=== PATIENT | female | born 1970 | race Native Hawaiian/Other Pacific Islander ===

== ENCOUNTER 2016-12-21 12:52 | Outpatient (CLI) | payer OTHER ==
[~2016-12-21 12:52] MED LIST: ALPR0.2566 PO; BENICAR HCT1 TA2 PO; HYDR25TA60 PO; LEVO0.1T6 PO; OMEP40CA PO; POLY3350; PRISTIQ50 MG OR; WELLBUTRIN150 MG PO
[2016-12-21 13:30] LABS: PLATELET COUNT 347 K/uL (152-353)
[2016-12-21 14:29] LABS: POTASSIUM 3.8 mmol/L (3.6-5.2); SODIUM 134 mmol/L (136-145)
== END 2016-12-21 13:00 | disposition home or self-care (01) ==
LOC: LAB 12:52
PROVIDERS: Nurse Practitioner Family
DX: F32.89 Other specified depressive episodes (principal); F41.8 Other specified anxiety disorders; R63.5 Abnormal weight gain; R53.83 Other fatigue; R53.81 Other malaise; E78.00 Pure hypercholesterolemia, unspecified; R79.89 Other specified abnormal findings of blood chemistry
CPT/HCPCS: 80053; 80061; 82306; 82607; 82672; 83036; 84144; 84402; 84436; 84443; 85027

== ENCOUNTER 2017-10-07 12:30 | Outpatient (CLI) | payer OTHER ==
[2017-10-07 12:53] LABS: PLATELET COUNT 369 K/uL (152-353)
[2017-10-07 12:56] LABS: POTASSIUM 3.8 mmol/L (3.6-5.2); SODIUM 134 mmol/L (136-145)
== END 2017-10-07 22:01 | disposition home or self-care (01) ==
LOC: LABW 12:30
PROVIDERS: Anesthesiology
DX: Z01.818 Encounter for other preprocedural examination (principal); I10 Essential (primary) hypertension
CPT/HCPCS: 36415; 80048; 81025; 85027

== ENCOUNTER 2018-11-17 13:42 | Outpatient (CLI) | payer OTHER ==
[2018-11-17 14:15] LABS: POTASSIUM 3.4 mmol/L (3.6-5.2)
== END 2018-11-17 20:06 | disposition home or self-care (01) ==
LOC: LABW 13:42
PROVIDERS: Nurse Practitioner Family
DX: M79.10 Myalgia, unspecified site (principal)
CPT/HCPCS: 36415; 80053

== ENCOUNTER 2018-12-26 10:54 | Outpatient (CLI) | payer OTHER | END 2018-12-26 20:09 | disposition home or self-care (01) | LOC: LABW 10:54 | DX: Z01.818 Encounter for other preprocedural examination (principal) | CPT/HCPCS: 36415; 84702; 93005 ==

== ENCOUNTER 2019-02-24 09:36 | Outpatient (CLI) | payer OTHER | END 2019-02-24 19:16 | disposition home or self-care (01) | LOC: LABW 09:36 | PROVIDERS: Nurse Practitioner | DX: E03.8 Other specified hypothyroidism (principal); E78.49 Other hyperlipidemia | CPT/HCPCS: 36415; 80061; 84436; 84443 ==

== ENCOUNTER 2019-07-17 12:42 | Outpatient (CLI) | payer OTHER | END 2019-07-17 21:59 | disposition home or self-care (01) | LOC: MAMMO 12:42 | DX: Z12.31 Encounter for screening mammogram for malignant neoplasm of breast (principal) ==

== ENCOUNTER 2019-08-27 07:42 | Outpatient (CLI) | payer OTHER | END 2019-08-27 19:44 | disposition home or self-care (01) | LOC: LABW 07:42 | DX: E03.8 Other specified hypothyroidism (principal) | CPT/HCPCS: 36415; 84439; 84443 ==

== ENCOUNTER 2019-10-01 09:01 | Outpatient (CLI) | payer OTHER | END 2019-10-01 22:27 | disposition home or self-care (01) | LOC: US 09:01 | DX: R10.11 Right upper quadrant pain (principal); R11.0 Nausea; K21.9 Gastro-esophageal reflux disease without esophagitis | CPT/HCPCS: 87338 ==

== ENCOUNTER 2020-01-19 10:59 | Outpatient (CLI) | payer OTHER | END 2020-01-19 19:25 | disposition home or self-care (01) | LOC: LABW 10:59 | DX: E03.8 Other specified hypothyroidism (principal) | CPT/HCPCS: 36415; 84439; 84443 ==

== ENCOUNTER 2020-05-06 10:26 | Outpatient (CLI) | payer OTHER | END 2020-05-06 23:01 | disposition home or self-care (01) | LOC: RAD 10:26 | DX: R05 Cough (principal) ==

== ENCOUNTER 2020-07-08 11:26 | Outpatient (CLI) | payer OTHER | END 2020-07-08 22:25 | disposition home or self-care (01) | LOC: US 11:26 | DX: R10.32 Left lower quadrant pain (principal) ==

== ENCOUNTER 2020-07-14 08:27 | Outpatient (CLI) | payer OTHER | END 2020-07-14 19:01 | disposition home or self-care (01) | LOC: CT 08:27 | DX: K59.09 Other constipation (principal); R10.32 Left lower quadrant pain | CPT/HCPCS: 36415; 82565; 84520; Q9963 ==

== ENCOUNTER 2020-07-21 12:47 | Outpatient (CLI) | payer OTHER ==
[2020-07-21 13:09] LABS: PLATELET COUNT 353 K/uL (152-353)
== END 2020-07-21 23:17 | disposition home or self-care (01) ==
LOC: LABW 12:47
PROVIDERS: Registered Nurse
DX: R53.83 Other fatigue (principal); Z79.899 Other long term (current) drug therapy; R63.5 Abnormal weight gain; R10.84 Generalized abdominal pain
CPT/HCPCS: 36415; 80053; 82306; 82533; 82607; 82627; 82670; 82746; 84144; 84402; 84403; 84439; 84443; 84481; 85027; 86677

== ENCOUNTER 2020-08-24 12:44 | Outpatient (CLI) | payer OTHER | END 2020-08-24 19:59 | disposition home or self-care (01) | LOC: MAMMO 12:44 | PROVIDERS: ATTEND Obstetrics & Gynecology | DX: Z12.31 Encounter for screening mammogram for malignant neoplasm of breast (principal) ==

== ENCOUNTER 2020-09-21 09:21 | Day surgery (SDC) | payer OTHER ==
[2020-09-19 09:24] LABS: PLATELET COUNT 324 K/uL (152-353)
[2020-09-19 09:32] LABS: POTASSIUM 3.7 mmol/L (3.6-5.2)
== END 2020-09-21 11:45 | disposition home or self-care (01) ==
LOC: OR 09:21
PROVIDERS: ATTEND Internal Medicine Gastroenterology
PROC: 0DJD8ZZ Inspection of Lower Intestinal Tract, Via Natural or Artificial Opening Endoscopic (ICD-10-PCS; principal; 2020-09-21)
DX: K64.8 Other hemorrhoids (principal); R10.30 Lower abdominal pain, unspecified; K59.09 Other constipation
CPT/HCPCS: 80053; 85027; J2704; J7120

== ENCOUNTER 2021-04-10 08:11 | Outpatient (CLI) | payer OTHER | END 2021-04-10 19:19 | disposition home or self-care (01) | LOC: LABW 08:11 | PROVIDERS: ATTEND Nurse Practitioner | DX: R14.0 Abdominal distension (gaseous) (principal); R00.2 Palpitations | CPT/HCPCS: 87338 ==

== ENCOUNTER 2021-04-18 07:53 | Outpatient (CLI) | payer OTHER | END 2021-04-18 20:31 | disposition home or self-care (01) | LOC: NM 07:53 | PROVIDERS: ATTEND Nurse Practitioner | DX: R14.0 Abdominal distension (gaseous) (principal) | CPT/HCPCS: A9537 ==

== ENCOUNTER 2021-05-04 10:25 | Outpatient (CLI) | payer OTHER | END 2021-05-04 22:36 | disposition home or self-care (01) | LOC: RESP 10:25 | PROVIDERS: ATTEND Nurse Practitioner | DX: R00.2 Palpitations (principal) ==

== ENCOUNTER 2021-08-09 07:41 | Outpatient (CLI) | payer OTHER ==
[2021-08-09 08:30] LABS: PLATELET COUNT 369 K/uL (152-353)
== END 2021-08-09 20:28 | disposition home or self-care (01) ==
LOC: LABW 07:41
PROVIDERS: ATTEND Nurse Practitioner Family
DX: N95.1 Menopausal and female climacteric states (principal); E03.8 Other specified hypothyroidism; Z00.00 Encounter for general adult medical examination without abnormal findings; R00.2 Palpitations
CPT/HCPCS: 36415; 82670; 83001; 83002; 83036; 84144; 84436; 84439; 84443; 84479; 85027

== ENCOUNTER 2021-08-31 12:38 | Outpatient (CLI) | payer OTHER | END 2021-08-31 18:54 | disposition home or self-care (01) | LOC: MAMMO 12:38 | PROVIDERS: ATTEND Obstetrics & Gynecology | DX: Z12.31 Encounter for screening mammogram for malignant neoplasm of breast (principal) ==

== ENCOUNTER 2022-06-19 07:45 | Outpatient (CLI) | payer OTHER ==
[2022-06-19 08:08] LABS: PLATELET COUNT 313 K/uL (152-353)
[2022-06-19 08:18] LABS: POTASSIUM 3.4 mmol/L (3.6-5.2)
== END 2022-06-19 20:54 | disposition home or self-care (01) ==
LOC: LABW 07:45
PROVIDERS: ATTEND Nurse Practitioner Family
DX: I10 Essential (primary) hypertension (principal); N95.1 Menopausal and female climacteric states; E03.8 Other specified hypothyroidism; R00.2 Palpitations; R68.82 Decreased libido
CPT/HCPCS: 36415; 80053; 80061; 82670; 84144; 84403; 84439; 84443; 84479; 84480; 85027

== ENCOUNTER 2022-09-25 12:07 | Outpatient (CLI) | payer OTHER | END 2022-09-25 19:01 | disposition home or self-care (01) | LOC: MAMMO 12:07 | PROVIDERS: ATTEND Obstetrics & Gynecology | DX: Z13.820 Encounter for screening for osteoporosis (principal); Z12.31 Encounter for screening mammogram for malignant neoplasm of breast ==

== ENCOUNTER 2022-11-15 08:08 | Outpatient (CLI) | payer OTHER | END 2022-11-15 22:24 | disposition home or self-care (01) | LOC: LABW 08:08 | PROVIDERS: ATTEND Internal Medicine Cardiovascular Disease | DX: E78.49 Other hyperlipidemia (principal) | CPT/HCPCS: 36415; 80061; 80076 ==

== ENCOUNTER 2022-12-06 12:00 | Outpatient (CLI) | payer OTHER | END 2022-12-06 19:35 | disposition home or self-care (01) | LOC: CT 12:00 | PROVIDERS: ATTEND Internal Medicine Cardiovascular Disease | DX: Z13.6 Encounter for screening for cardiovascular disorders (principal); Z82.49 Family history of ischemic heart disease and other diseases of the circulatory system; E78.49 Other hyperlipidemia ==

== ENCOUNTER 2022-12-06 12:10 | Outpatient (CLI) | payer OTHER | END 2022-12-06 19:36 | disposition home or self-care (01) | LOC: RAD 12:10 | PROVIDERS: ATTEND Internal Medicine Cardiovascular Disease | DX: M25.511 Pain in right shoulder (principal) ==

== ENCOUNTER 2023-04-25 12:03 | Outpatient (CLI) | payer OTHER | END 2023-04-25 21:52 | disposition home or self-care (01) | LOC: LAB 12:03 | PROVIDERS: ATTEND Obstetrics & Gynecology | DX: E03.8 Other specified hypothyroidism (principal) | CPT/HCPCS: 36415; 84439; 84443; 84479; 84480 ==